=== PATIENT | female | born 2000 | race Caucasian/White ===

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

== ENCOUNTER 2019-01-10 09:55 | Inpatient (IN) | payer MEDICARE ==
[2019-01-10] VITALS (9 sets, daily range): BP systolic 103–139; BP diastolic 56–95; Ht 152.4 cm; Wt 72.6 kg
[~2019-01-10] VITALS: Ht 152.4 cm; Wt 72.6 kg
[2019-01-10 11:24] LABS: HEMATOCRIT 28.3 % (36.0-48.0); HEMOGLOBIN 8.2 g/dL (12-16); MCH 23.6 pg (26.0-34.0); MCV 81.3 fL (80.0-100.0); MEAN PLATELET VOLUME 10.6 fL (7.4-10.4); RBC 3.48 10x6/uL (4.00-5.40); RDW 16.7 % (11.5-14.5); WBC 10.1 10x3/uL (4.8-10.8)
--- NOTE | 2019-01-10 12:14 | NUR ---
DR LALA PHONED WITH H/H RESULTS AND PT REPORT HX OF PP HEMORRHAGE. ORDER RCVD TO TRANFUSE 1 UNIT PRBC NOW, 1 UNIT IN O.R., AND PUT 2 UNITS PRBC ON HOLD. WILL PROCEED ORDERED.
--- NOTE | 2019-01-10 15:16 | NUR ---
FUNDUS PALPATED, FIRM AND MIDLINE.
--- NOTE | 2019-01-10 16:30 | NUR ---
RECEIVED SHIFT REPORT FROM RADHA GARCIA RN
--- NOTE | 2019-01-10 16:51 | NUR ---
PT AWAKE, VISITING WITH FAMILY AND FRIENDS, FOB HOLDING BABY, IV IN RIGHT WRIST, INTACT WITH NO REDNESS OR EDEMA INFUSING VIA PUMP NS WITH PITOCIN AT 125 ML/HR, DILAUDID NETSUITE CONSULTANT INITIATED PER MD ORDERS, SEE EMAR, PT INST ON AND VERBALIZES UNDERSTANDING OF NETSUITE CONSULTANT, SCD'S CONNECTED TO PUMP AND WORKING PROPERLY, INFORMED PT I WILL BE BACK SHORTLY TO DO ASSESSMENT AND ANMOL CARE, PT VERBALIZES UNDERSTANDING, REQUESTED AND SERVED APPLE JUICE, DENIES FURTHER NEEDS
--- NOTE | 2019-01-10 17:30 | NUR ---
PT BABY AT THIS TIME, INFORMED PT I WILL BE BACK AFTER SHE IS FINISHED , FOB AT BEDSIDE
--- NOTE | 2019-01-10 18:25 | NUR ---
DEMARIO ROJAS, MAT MAN IN ROOM AT THIS TIME WITH INFANT AND MOM
--- NOTE | 2019-01-10 19:00 | NUR ---
ASSESSMENT PER FLOW SHEET, VS OBTAINED, NS WITH PITOCIN CONTINUES INFUSING PER MD ORDERS, PT USING DILAUDID DIRECTOR OF INSTITUTIONAL GIVING INSTRUCTED, RATES INC PAIN /, FF, ML, U/U, MOD BLEEDING NOTED WITH A FEW 1/2 PEA SIDE CLOTS, ANMOL CARE DONE WITH WET WARM WASH CLOTHS, PINK PAD, BLUE CHUX AND ANMOL PAD CHANGED, BIKINI INC WITH DERMABOND CDI WITH NO DRAINAGE NOTED, FRESH ICE PACK TO ABD, DAVE CATH INTACT, SECURED TO LEG WITH STATLOCK, PT REPORTS FLATUS, SCD'S CONTINUE ON AND WORKING PROPERLY, PT DENIES NEEDS AT THIS TIME, FOB HOLDING BABY
[2019-01-10 19:31] LABS: BASOPHILS 0.1 % (0-2); EOSINOPHILS 1.6 % (0-7); HEMATOCRIT 32.8 % (36.0-48.0); IMMATURE GRANULOCYTES 0.3 % (0-5); LYMPHOCYTES 14.2 % (15-50); MCH 24.5 pg (26.0-34.0); MCHC 30.8 g/dL (31.0-37.0); MCV 79.4 fL (80.0-100.0); MEAN PLATELET VOLUME 10.6 fL (7.4-10.4); MONOCYTES 4.5 % (2-11); NEUTROPHILS 79.3 % (40-80); PLATELET COUNT 190 10x3/uL (130-400); RBC 4.13 10x6/uL (4.00-5.40)
[2019-01-10 19:32] LABS: HEMOGLOBIN 10.1 g/dL (12-16); WBC 15.3 10x3/uL (4.8-10.8)
--- NOTE | 2019-01-10 20:57 | NUR ---
PT HOLDING BABY, NEW BAG OF NS WITH PITOCIN HUNG PER MD ORDERS, SEE EMAR, PT RATES INC PAIN 12/15, DENIES NEEDS AT THIS TIME
--- NOTE | 2019-01-10 21:30 | NUR ---
PT VISITING WITH FEMALE AT BEDSIDE, HOLDING BABY, ANOTHER CHILD IN ROOM, BEDDING PROVIDED FOR FOB, PT DENIES NEEDS AT THIS TIME
--- NOTE | 2019-01-10 22:32 | NUR ---
PT TALKING ON CELL PHONE, DENIES NEEDS AT THIS TIME
--- NOTE | 2019-01-10 23:45 | NUR ---
PT BLADE SHARPENER LIGHT, PT REQUESTING ANMOL CARE, VS OBTAINED, ANMOL CARE DONE WITH WET WARM WASH CLOTHS, BLUE CHUX AND ANMOL PAD CHANGED, LITE BLEEDING NOTED WITH NO CLOTS, DAVE CATH EMPTIED, FRESH ICE PACK PLACED, SCD'S CONTINUE ON AND WORKING PROPERLY, DENIES FURTHER NEEDS, BABY BACK TO PT'S ARMS, FOB AND OTHER CHILD AT BEDSIDE
--- NOTE | 2019-01-11 02:00 | NUR ---
UPON ENTERING ROOM, PT APPEARED TO BE SLEEPING, BABY ON BREAST AT THIS TIME, PT AROUSES TO SOFT VERBAL STIMULATION, PT INFORMED THAT IF SHE IS HOLDING BABY, SHE MUST STAY AWAKE, PT VERBALIZES UNDERSTANDING, DENIES NEEDS AT THIS TIME, FOB AND OTHER DAUGHTER ASLEEP IN RECLINER
[2019-01-11 04:45] VITALS: BP 92/46
--- NOTE | 2019-01-11 04:45 | NUR ---
PT AWAKE, HOLDING BABY, VS OBTAINED, I&O'S COLLECTED, MOD BLEEDING NOTED WITH NO CLOTS, ANMOL CARE DONE WITH WET WARM WASH CLOTHS, BLUE CHUX AND ANMOL PAD CHANGED, FRESH ICE PACK TO ABD, LAB TO ROOM FOR AM BLOOD DRAW, PT DENIES NEEDS AT THIS TIME, FOB AND OTHER CHILD AT BEDSIDE
--- NOTE | 2019-01-11 05:33 | NUR ---
NEW VIAL OF DILAUDID TO AUTO JOB ESTIMATOR FOR PAIN MANAGEMENT PER MD ORDERS, SEE EMAR
[2019-01-11 06:14] LABS: BASOPHILS 0.2 % (0-2); EOSINOPHILS 3.1 % (0-7); HEMOGLOBIN 8.9 g/dL (12-16); IMMATURE GRANULOCYTES 0.5 % (0-5); LYMPHOCYTES 15.9 % (15-50); MCH 23.8 pg (26.0-34.0); MCHC 29.7 g/dL (31.0-37.0); MCV 80.2 fL (80.0-100.0); MEAN PLATELET VOLUME 10.7 fL (7.4-10.4); MONOCYTES 5.1 % (2-11); NEUTROPHILS 75.2 % (40-80); PLATELET COUNT 175 10x3/uL (130-400); RBC 3.74 10x6/uL (4.00-5.40); RDW 17.2 % (11.5-14.5)
--- NOTE | 2019-01-11 06:23 | NUR ---
PT HOLDING BABY, INQUIRES ABOUT BREAKFAST, INFORMED PT WHEN BREAKFAST WAS SERVED, POC DISCUSSED WITH PT, PT VERBALIZES UNDERSTANDING, DENIES FURTHER NEEDS
[2019-01-11 06:59] LABS: WBC 11.1 10x3/uL (4.8-10.8)
--- NOTE | 2019-01-11 07:00 | NUR ---
SHIFT REPORT TO WILL STYLES RN
[2019-01-11 07:15] VITALS: BP 102/56
--- NOTE | 2019-01-11 07:15 | NUR ---
ASSESSMENT DONE. VS DONE. PT DENIES NEEDS AT THIS TIME.
[2019-01-11 08:15] LABS: RAPID PLASMA REAGIN Non Reactive (Non Reactive)
--- NOTE | 2019-01-11 10:19 | NUR ---
Karime Huff 01/11/19 CLC in room for assessment. Patient in shower at this time. Chad Foster, CLC
--- NOTE | 2019-01-11 10:27 | NUR ---
POC DISCUSSED WITH PT -PT STATES THAT SHE WANTS TO GET UP TO SHOWER AFTER CATH IS OUT. IV CHANGED TO SALINE LOCK. DAVE CATH REMOVED POST BULB DEFLATED WITH 600CC EMPTIED FROM CATH BAG. PT AMBULATES TO SHOWER - SHOWER DONE -FRANSICO WELL. LINENS CHANGED.
--- NOTE | 2019-01-11 10:30 | NUR ---
DRESSES IN OWN CLOTHES. INSTRUCTED ON CARE OF INCISION AREA.
--- NOTE | 2019-01-11 10:44 | NUR ---
ambulating in hallway with sign other.
--- NOTE | 2019-01-11 12:35 | NUR ---
CJECKING ON PT- STATES SHE WOULD LIKE PAIN MEDICATION- RATES PAIN A 4 ON SCALE OF 0-10.
[2019-01-11 13:27] VITALS: BP 92/45
--- NOTE | 2019-01-11 13:30 | NUR ---
sitting up in bed -holding
--- NOTE | 2019-01-11 15:03 | NUR ---
UP TO BATHROOM TO VOID.
--- NOTE | 2019-01-11 18:12 | NUR ---
up to bathroom to void. states would like pain medication- rates pain a 6 on scale of 0-10. states pain is at incision area.
--- NOTE | 2019-01-11 19:26 | NUR ---
REPORT TO PM SHIFT.
--- NOTE | 2019-01-11 19:42 | NUR ---
PT HOLDING BABY, VISITING WITH FAMILY AND FRIENDS, INFORMED PT THAT I WILL BE BACK SHORTLY TO DO ASSESSMENT, PT VERBALIZES UNDERSTANDING, DENIES NEEDS AT THIS TIME
--- NOTE | 2019-01-11 20:46 | NUR ---
PT AMB IN CHAVEZ, GAIT STEADY, FOB AT SIDE
[2019-01-11 21:01] VITALS: BP 117/78
--- NOTE | 2019-01-11 21:01 | NUR ---
PT BACK IN ROOM, BACK TO BED, ASSESSMENT PER FLOW SHEET, VS OBTAINED, SALINE LOCK IN RIGHT WRIST AND LEFT HAND INTACT WITH NO REDNESS OR EDEMA, FF, ML, U/1, PT REPORTS LITE BLEEDING WITH A CLOT EARLIER THIS MORNING, BIKINI LINE INC WITH DERMABOND CDI WITH NO DRAINAGE NOTED, ANMOL PAD OVER INC FOR COMFORT AND MOISTURE CONTROL, PT REPORTS FLATUS, NO BM AND VOIDING WITH NO DIFFICULTY, ADM MOTRIN PER MD ORDERS, SEE EMAR, PT DENIES FURTHER NEEDS, FOB AND INFANT AT BEDSIDE
--- NOTE | 2019-01-11 22:05 | NUR ---
PT'S DAD AT ORDNANCE HANDLER, CHECKED WITH PT BEFORE HE WENT IN TO MAKE SURE SHE WASN'T , PT'S DAD TO ROOM, PT DENIES NEEDS AT THIS TIME
[2019-01-11 23:00] VITALS: BP 104/64
--- NOTE | 2019-01-11 23:00 | NUR ---
PATIENT AWAKE AND ALERT HOLDING INFANT. FOB AT BEDSIDE. VITAL SIGNS TAKEN DOCUMENT. LEFT AND RIGHT SALINE LOCKED IV FLUSHED ORDERED. PATIENT VERBALIZED PAIN FROM CRAMPING AND INCISION. NORCO GIVEN FOR PAIN ORDERED. SEE EMAR. PATIENT DENIES ANY CONCERNS OR NEEDS AT THIS TIME.
--- NOTE | 2019-01-12 00:10 | NUR ---
PT USER EXPERIENCE DEVELOPER LIGHT, PT REQUESTED ADJ OF AIR, THIS RN TO ROOM, ADM AIR FOR PT, INFORMED HER IF IT GETS TO COLD, INST HER TO USE CALL LIGHT, PT VERBALIZES UNDERSTANDING, DENIES FURTHER NEEDS, PT HOLDING INFANT, FOB AND OTHER CHILD AT BEDSIDE
--- NOTE | 2019-01-12 03:17 | NUR ---
PT AWAKE, BABY TO ROOM VIA OPEN CRIB CART PER THIS RN, BANDS CHECKED, PT C/O CRAMPING, ADM PERCOCET PER MD ORDERS, SEE EMAROLINDA, RN OBTAINS VS, FOB AND OTHER CHILD ASLEEP IN RECLINER
--- NOTE | 2019-01-12 05:35 | NUR ---
PT ASSISTANT ATTORNEY GENERAL LIGHT, PT REPORTS "DOZING", BABY TO NSY VIA OPEN CRIB CART PER THIS RN, PT DENIES NEEDS AT THIS TIME
--- NOTE | 2019-01-12 06:48 | NUR ---
PT BACK TO ROOM
--- NOTE | 2019-01-12 07:55 | NUR ---
DR LALA TO ROOM. VISITS WITH PT. STATES PT MAY DC HOME WITH INFANT.
[2019-01-12 08:05] VITALS: BP 113/73
--- NOTE | 2019-01-12 08:05 | NUR ---
RECEIVED PT SITTING UPRIGHT IN BED. VISITS WITH SO. AAO X 3. VSS. HRRR WITHOUT AUDIBLE MURMUR. BBS CLEAR. BS X 4. ABDOMEN SOFT/NON-DISTENDED. PT STATES PASSING GAS. NO BM YET. FUNDUS FIRM AT U/1. RUBRA LOCHIA SCANT AMT. ABDOMINAL INCISION WITH DERMABOND WITHOUT REDNESS, SWELLING OR DRAINAGE NOTED. NEG HOMANS' SIGN. PPP. NO EDEMA NOTED TO BLE. SL TO RIGHT WRIST AND LEFT HAND CLEAR. PT DENIES NEED FOR PAIN MED AT THIS TIME. STATES PAIN OF "3" ON 0-10 PAIN SCALE. SR UP X2. CALL LIGHT IN REACH.
--- NOTE | 2019-01-12 08:29 | NUR ---
PT REQUESTS AND RECEIVES MOTRIN 600 MG AND NORCO 10/325 PO ORDERED FOR C/O INCISIONAL PAIN AND CRAMPING OF "4" ON0-10 PAIN SCALE. PT INSTRUCTED ON MEDS. VERBALIZES UNDERSTANDING.
--- NOTE | 2019-01-12 08:35 | NUR ---
BOTH SL DC'D WITH CATHELONS INTACT. PRESSURE BANDAGES TO BOTH SITES. PT FRANSICO WELL.
--- NOTE | 2019-01-12 08:40 | NUR ---
PT UP TO SHOWER AT THIS TIME. LINENS PROVIDED.
--- NOTE | 2019-01-12 09:19 | NUR ---
PT SITTING UP IN BED. VISITS WITH FAMILY. DENIES C/O OR NEEDS.
--- NOTE | 2019-01-12 10:48 | NUR ---
Zach Huff 01/12/19 S: Patient states is going ok but she could use some help with latching. some times hurts when infant is latching to the breast. Patient states changing position has helped with the pain. His latch feels so much better. Verbalized she is aware and understands how to correctly latch to the breast. Denies questions or concerns. O: Patient in bed attempting to latch on the left breast in laid back position for feeding. Observed feeding, infant body is turned upright and mouth is 90 degrees as he sucks on the breast. Offered to help adjust latch. Patient nipples show no signs of trauma, redness, or scabbing. Pain can be from latch not being correct. Explained the importance of turning infant tummy to tummy and how to correctly latch infant and how to make sure his latch is correct. Infant was latched on the left breast in laid back position at 10:10. Infant was turned tummy to tummy, mouth 140 degrees, sucking in a rocking motion, and observed infant swallowing. Infant and patient both appeared content with . No discomfort expressed from patient. Encouraged to continue to nurse infant 8-12 times in 24 hours to help with establishing her milk supply. Explained normal feeding patterns for a breastfed infant. takes time, practice, and patience. Explained infant feeding cues, supply and demand, and breastmilk composition. Your body is capable of making exactly what infant needs as long as baby is able to be placed to the breast for every feeding. Please ask for help as needed with . Asked if any concerns or questions? Verified with patient she is aware of how to make sure is correctly latched to the breast. Infant remains latched to the breast as CLC leaves room. A: Patient needs help with latching due to pain sometimes when latching . P:Continue to promote during hospital visit. Asked for help as needed from hospital staff with . REGLA Campbell
--- NOTE | 2019-01-12 11:05 | NUR ---
DR LALA NOTIFIED OF DISCHARGE ORDER ON . ORDER RECEIVED.
[2019-01-12] MEDS ORDERED: HYDROCODON-ACE1 EA10 PO (12:44)
[2019-01-12] MEDS ORDERED: MOTRIN600 MG PO (12:44)
--- NOTE | 2019-01-12 12:53 | NUR ---
PT REQUESTS AND RECEIVES NORCO FOR C/O ABDOMINAL CRAMPING. PT INSTRUCTED ON MED. VERBALIZES UNDERSTANDING.
--- NOTE | 2019-01-12 13:00 | NUR ---
PT GIVEN DISCHARGE INSTRUCTIONS. VERBALIZES UNDERSTANDING OF ALL INSTRUCTIONS. COPIES GIVEN TO PT. PT PREPARES FOR DISCHARGE.
--- NOTE | 2019-01-12 13:28 | NUR ---
PT READY FOR DISCHARGE. DISCHARGED IN STABLE CONDITION VIA WHEELCHAIR PER K LISS RN TO PRIVATE VEHICLE. INFANT CARRIED OUT VIA CARSEAT PER FOB.
== END 2019-01-12 13:28 | disposition home or self-care (01) | DRG 788 ==
LOC: D.WS 09:55 → D.LD 09:55 → D.SDCHOLD 12:00 → D.WS 15:19
PROVIDERS: ADMIT Obstetrics & Gynecology; ATTEND Obstetrics & Gynecology
PROC: 10D00Z1 Extraction of Products of Conception, Low, Open Approach (ICD-10-PCS; principal; 2019-01-10 12:00)
DX: O98.32 Other infections with a predominantly sexual mode of transmission complicating childbirth (principal); A56.8 Sexually transmitted chlamydial infection of other sites; Z3A.37 37 weeks gestation of pregnancy; Z37.0 Single live birth; O34.219 Maternal care for unspecified type scar from previous cesarean delivery